=== PATIENT | female | born 1995 | race Caucasian/White ===

== ENCOUNTER → 2021-06-17 | Day surgery (SDC) | payer OTHER ==
[~2021-06-17] VITALS: Ht 165.1 cm; Wt 136.1 kg
[~2021-06-17] MED LIST: ACETAMINOPHEN500 M1 PO; ATARAX25 MG PO; BACLOFEN 20MG T20 MG PO; BUSPAR5 MG PO; CLINDAMYCIN 15150 MG PO; CYMBALTA20 MG PO; IBUPROFEN800 MG PO; LIPITOR20 MG PO; NEURONTIN100 MG PO; PEPCID AC20 MG PO; PERCOCET 5-3251 EACH PO; PROZAC20 MG PO; SINGULAIR10 MG PO; VENTOLIN HFA IN18 GM INH; VITAMIN D375 MCG PO; VOLTAREN **OUT50 MG PO
[2021-06-17 10:34] LABS: HCG (URINE) SCREEN NEGATIVE (NEGATIVE)
[2021-06-17 11:01] LABS: BASOPHIL 0.4 % (0-2); EOSINOPHIL 2.8 % (0-5); HCT 38.5 % (37.0-47.0); HGB 12.8 g/dl (12.5-16.0); LYMPHOCYTE 32.6 % (15-48); MCH 28.9 pg (25.0-31.0); MCHC 33.2 g/dL (32.0-36.0); MCV 86.9 fL (78.0-100.0); MONOCYTE 5.4 % (0-12); MPV 10.2 fL (6.0-9.5); NEUTROPHIL 58.5 % (41-80); NRBC 0; PLT 349 K/uL (150-400); RBC 4.43 M/uL (4.20-5.40); RDW 12.6 % (11.5-14.0); WBC 6.9 K/uL (4.0-10.5)
== END | disposition home or self-care (01) ==
LOC: FAS 06-03 10:30
PROVIDERS: Oral & Maxillofacial Surgery
DX: K04.7 Periapical abscess without sinus (principal); K02.9 Dental caries, unspecified; J44.9 Chronic obstructive pulmonary disease, unspecified; E78.00 Pure hypercholesterolemia, unspecified; K21.9 Gastro-esophageal reflux disease without esophagitis; F32.A Depression, unspecified; Z88.0 Allergy status to penicillin; Z88.1 Allergy status to other antibiotic agents
CPT/HCPCS: D7140; D7210; 36415; 84703; 85025; 93005; J1100; J1170; J2001; J2250; J2405; J2704; J3010; J7120